=== PATIENT | male | born 1995 | race Asian ===

== ENCOUNTER → 2020-04-06 | Outpatient (CLI) | payer OTHER ==
--- NOTE | 2020-04-06 16:34 | REPVR ---
PROCEDURE INFORMATION: Exam: MR Head Without Contrast; Internal Auditory Canals Exam date and time: 04/06/2020 3:27 PM Age: 24 years old Clinical indication: Patient HX: Bilateral hearing loss TECHNIQUE: Imaging protocol: MR of the head without contrast. Exam focused on the internal auditory canals. 3D rendering (Not supervised by radiologist): MIP and/or 3D reconstructed images were created by the technologist. COMPARISON: No relevant prior studies available. FINDINGS: Brain: Visualized brain is unremarkable. Ventricles: No ventriculomegaly. Mastoid air cells: Unremarkable. No effusions. Internal auditory canals: Unremarkable. 7th and 8th cranial nerves are unremarkable. No abnormal masses. Bones/joints: Unremarkable. IMPRESSION: Normal internal auditory canals. Electronically signed by: Mario Lezama On 04/06/2020 16:34:51 PM
== END ==
LOC: M RAD 14:53
PROVIDERS: ATTEND Otolaryngology
DX: H91.20 Sudden idiopathic hearing loss, unspecified ear (principal)